=== PATIENT | male | born 1940 | race Caucasian/White ===

== ENCOUNTER 2018-10-23 04:34 | Inpatient (IN) ==
[2018-10-23] MEDS ORDERED: Naloxone 0.4 MG/ML INJ IVP PRN (06:59)
[2018-10-23] MEDS ORDERED: Artificial Tears SOLN 15 ML BOTTLE BOTH EYES PRN (07:01)
--- NOTE | 2018-10-23 07:46 | Pulmonology History & Physical ---
<Ollie Galvan - Last Filed: 10/23/18 18:52> Date of Encounter: 10/23/18 Time of Encounter: 07:45 Assessment and Plan (1) Acute respiratory failure with hypercapnia Current visit: Yes Status: Resolved Patient arrived intubated and sedated, secondary to acute respiratory failure with hypoxia and hypercapnia Patient does not have a history of respiratory disease, but does have a smoking history Patient also apparently had urticaria on arrival to [facility], epinephrine and Benadryl were given Differential for respiratory failure include anaphylaxis, hypersensitivity pneumonitis, COPD exacerbation Etiology is difficult to determine at this time, the patient's clinical status has completely resolved Chest imaging negative for significant signs of pneumonia or other significant pulmonary disease Patient is now extubated off sedation, saturating and ventilating appropriately on room air We will monitor the patient for 24 hours and then likely transfer to general medical floor (2) Hypertension Current visit: Yes Status: Chronic Patient has history of hypertension, his blood pressure was elevated into the 230 systolic on arrival Patient also had bradycardia on arrival in the 40s which has since improved to the 60s and 70s with extubation We have restarted his home valsartan and hydrochlorothiazide and have added IV hydralazine His blood pressure has remained stable on this regimen, once heart rate has normalized we can resume home beta stepan and calcium channel stepan Qualifiers: Hypertension type: essential hypertension Qualified Code(s): I10 - Essential (primary) hypertension (3) CAD (coronary artery disease) Current visit: No Status: Chronic History of coronary artery disease with remote PCI Patient denies any chest pain, EKG without acute signs of ischemia Patient did arrive and bradycardia chest since normalized Echocardiogram pending, otherwise in no acute signs of ACS Qualifiers: Coronary Disease-Associated Artery/Lesion type: [place] artery [place] vs. transplanted heart: [place] heart Associated angina: without angina Qualified Code(s): I25.10 - Atherosclerotic heart disease of [place] coronary artery without angina pectoris (4) Bradycardia Current visit: Yes Status: Resolved Patient arrived with bradycardia, since resolved History of Present Illness Chief complaint: Acute respiratory failure HPI: Mr. Villarreal is a 77 year old male with past medical history of coronary artery disease status post PCI, hypertension. He presented from [facility] ED for acute res piratory fair. Apparently the patient woke up this morning feeling short of breath, the was driving him to [facility] emergency department when he slumped over and became cyanotic. ER staff at [facility] had to pull the patient from his car, he was immediately brought inside and intubated, with immediate return of color and optimization of oxygen saturation and ventilation. He was then quickly transferred to [facility] ICU. On arrival to our ICU the patient was saturating and ventilating appropriately on mechanical ventilation, blood pressure was elevated but stable, heart rate was bradycardic but regular. Past Med Surg Social Fam HX - Past Medical History Medical history: cancer, hypertension, myocardial infarction Psychiatric history: no psych history - Social History Smoking Status: Former smoker Smokeless Tobacco Status: No Alcohol use: none Drug use: none Medications and Allergies Losartan [Cozaar] 100 mg PO DAILY 02/13/15 [History] Multivitamin [Flintstones] 1 each PO DAILY 02/13/15 [History] [place]-3/Dha/Epa/Fish Oil [Fish Oil EC 1,200 mg Softgel] 1 cap PO DAILY 02/13/15 [History] Potassium Chloride 40 meq PO HS 02/13/15 [History] Pravastatin Sodium [Pravachol] 40 mg PO DAILY 02/13/15 [History] Aspirin [Adult Aspirin] 81 mg PO DAILY 10/23/18 [History] Carvedilol [Coreg] 25 mg PO BID 10/23/18 [History] Potassium Chloride 20 meq PO DAILY 10/23/18 [History] dilTIAZem HCl [Diltiazem HCl] 120 mg PO BID 10/23/18 [History] hydroCHLOROthiazide [Hydrochlorothiazide] 25 mg PO DAILY 10/23/18 [History] Allergy/AdvReac Type Severity Reaction Status Date / Time naproxen [From Aleve] Allergy Severe Anaphylaxis Verified 10/23/18 17:16 ROS unobtainable: due to endotracheal tube All Systems: The remainder of the systems were reviewed and are negative Physical Examination Vital Signs: Vital Signs, Last 4 Hours Temp Pulse Resp BP Pulse Ox 10/23/18 07:00 0 F L 44 14 163/118 96 10/23/18 06:46 17 96 General appearance: no acute distress (State on arrival, after extubation patient was in no acute distress) Eyes: nonicteric Effort: normal (Arrived mechanically ventilated, afterwards normal) Auscultation: bilateral: clear Cardiovascular: regular rate and rhythm Gastrointestinal: normoactive bowel sounds, soft, non-tender, non-distended Integumentary: normal Extremities: no cyanosis, no edema, pink and warm, pulses normal Musculoskeletal: no deformities other (Arrived sedated, after extubation was alert and oriented 3) <eBthel Ny - Last Filed: 10/24/18 21:43> Date of Encounter: 10/23/18 History of Present Illness HPI: Mr. Villarreal is a 77 year old male All Systems: The remainder of the systems were reviewed and are negative Physical Examination Vital Signs: Vital Signs, Last 4 Hours Temp Pulse Resp BP Pulse Ox 10/23/18 10:00 61 20 213/74 94 10/23/18 09:24 56 18 236/82 94 10/23/18 08:54 14 97 10/23/18 08:34 19 97 10/23/18 07:35 95.8 F L 10/23/18 07:11 45 14 193/67 97 10/23/18 07:00 0 F L 44 14 163/118 96 10/23/18 06:46 17 96 Results - Laboratory Findings CBC and BMP: 10/24/18 05:58 10/24/18 05:58 - Attending Attestation I examined this patient and my medical decision-making was reviewed with the Resident Physician. I agree with the documented findings, disposition and treatment plan as described except to the extent set forth below. Patient seen and examined. Labs, radiology, chart personally reviewed. Agree with resident's history and physical, assessment, plan with following comments: PERSONNEL TECHNICIAN: Patient follows commands after extubation Pulmonary: Acceptable oxygenation and ventilation and pt is extubated. When I saw this patient, it was not clear to me why the need to keep him on the ventilator and still not exactly sure what happened to him. There is a questionable allergic reaction to medication. Since it is not clear exactly what happened, will monitor closely in ICU and possible transfer out in next 24 hours. Cardiovascular: stable and more hypertensive and will resume his home medication when his heart rate is not bradycardic. Patient has history of CAD and will need to make sure this is not a cardiac event and will check echocardiogram and troponin. GI: Nutrition per dietary and GI prophylaxis per routine. Will resume diet soon. Heme: DVT prophylaxis per routine ID: I don't feel this is infection related. Renal; urine out put and renal function reviewed and will take Kwok's catheter out. Endorcine: blood glucose is monitored Lines: all lines checked and no evidence of infections Skin: skin care to prevent pressure ulcers per nursing routine care Dispo: ICU for today Code: Full. Prognosis. Fair I spent 45 min of Critical Care time with this patient. It involved decision making of high complexity to assess, manipulate, and support vital organ system failure and/or to prevent further life threatening deterioration of the patient's condition. The time involved in the performance of separately reportable procedures was not counted toward critical care time.
[2018-10-23] MEDS ORDERED: Chlorhexidine Rinse 15 ML MOUTHWASH MM SCH (09:00)
[2018-10-23] MEDS: Artificial Tears SOLN 15 ML BOTTLE BOTH EYES SCH ×3 (09:22→16:28)
[2018-10-23] MEDS: hydroCHLOROthiazide 25 MG TABLET PO SCH (09:55)
[2018-10-23] MEDS: Pantoprazole 40 MG VIAL IVP SCH (09:55)
[2018-10-23] MEDS: Aspirin Enteric Coated 81 MG Tablet PO SCH (09:55)
[2018-10-23] MEDS ORDERED: Perflutren Lipid Microsphere 1.3 ML in 0.9 % Sodium Chloride 8.7 ML IVP ONE (14:22)
--- NOTE | 2018-10-23 17:00 | Electrocardiograph Report ---
[address] [place], [place] [address] Test Date: 2018-10-23 Pat Name: Renny Villarreal Department: 109 Room: 11 Gender: M Tunneller: : 1940 Requested By: Ollie Galvan Order Number: [id number] Reading MD: Tracy Larsen Measurements Intervals [place] Rate: 44 P: 16 HI: 181 QRS: 4 QRSD: 95 T: 168 QT: 544 QTc: 497 Interpretive Statements SINUS BRADYCARDIA MODERATE T-WAVE ABNORMALITY, CONSIDER ANTEROLATERAL ISCHEMIA Electronically Signed On 10-23-2018 16:58:49 EDT by Tracy Larsen
[2018-10-24 06:30] LABS: Basophils % 0.1 %; Hematocrit 47.7 % (37.5-50.1); Hemoglobin 16.5 g/dL (12.9-16.9); Immature Granulocytes % 0.6 % (0-4); Lymphocytes # 1.2 K/mcL (0.6-4.6); Lymphocytes % 7.2 %; Mean Corpuscular HGB Conc 34.6 g/dL (31.6-35.5); Mean Corpuscular Hemoglobin 31.4 pg (28.0-33.3); Mean Corpuscular Volume 90.7 fL (83.0-100.0); Mean Platelet Volume 12.1 fL (9.4-12.4); Monocytes # 0.5 K/mcL (0.0-1.3); Monocytes % 2.9 %; Neutrophils # 14.7 K/mcL (1.6-8.9); Platelet Count 154 K/mcL (140-400); Red Blood Count 5.26 M/mcL (4.19-5.50); Red Cell Distribution Width 12.5 % (11.5-14.5); Segmented Neutrophils % 89.2 %; White Blood Count 16.5 K/mcL (4.3-11.1)
[2018-10-24 06:31] LABS: BUN/Creatinine Ratio 29 (6-26); Blood Urea Nitrogen 28 mg/dL (8-23); Calcium 9.2 mg/dL (8.6-10.3); Carbon Dioxide 30 mEq/L (23-29); Chloride 103 mEq/L (98-107); Glucose 166 mg/dL (70-105); Osmolality,Calculated 297 (280-300); Sodium 139 mEq/L (136-145); eGFR For African Americans > 60 (> 60); eGFR For Non-African Americans > 60 (> 60)
--- NOTE | 2018-10-24 07:06 | Pulmonology Progress Note ---
<Ollie Galvan - Last Filed: 10/24/18 15:21> Date of Encounter: 10/24/18 Time of Encounter: 07:06 Assessment and Plan (1) Acute respiratory failure with hypercapnia Current Visit: Yes Status: Inactive 10/23 Patient arrived intubated and sedated, secondary to acute respiratory failure with hypoxia and hypercapnia Patient does not have a history of respiratory disease, but does have a smoking history Patient also apparently had urticaria on arrival to [place], epinephrine and Benadryl were given Differential for respiratory failure include anaphylaxis, hypersensitivity pneumonitis, COPD exacerbation Etiology is difficult to determine at this time, the patient's clinical status has completely resolved Chest imaging negative for significant signs of pneumonia or other significant pulmonary disease Patient is now extubated off sedation, saturating and ventilating appropriately on room air 10/24 Patient saturating and ventilating appropriately on 2 L nasal cannula, in no acute distress At this time suspect original respiratory failure may have been due to anaphylaxis Transfer to general medical floor under supervision of hospitalist team (2) Hypertension Current Visit: Yes Status: Chronic Patient has history of hypertension, his blood pressure was elevated into the 230 systolic on arrival and has remained elevated We have restarted home Coreg, carvedilol, losartan, hydrochlorothiazide, and added when necessary IV hydralazine Patient is not exhibiting any and organ damage signs or symptoms including blurry vision, headache, renal damage This patient's blood pressure will require thorough workup prior to discharge however he is currently stable for transfer to the floor Qualifiers: Hypertension type: essential hypertension Qualified Code(s): I10 - Essential (primary) hypertension (3) CAD (coronary artery disease) Current Visit: No Status: Chronic History of coronary artery disease with remote PCI Patient denies any chest pain, EKG without acute signs of ischemia Patient did arrive with bradycardia which has since normalized Echocardiogram demonstrated mild diastolic dysfunction with preserved ejection fraction, otherwise in no acute signs of ACS Qualifiers: Coronary Disease-Associated Artery/Lesion type: [place] artery [place] vs. transplanted heart: [place] heart Associated angina: without angina Qualified Code(s): I25.10 - Atherosclerotic heart disease of [place] coronary artery without angina pectoris (4) Bradycardia Current Visit: Yes Status: Resolved Patient arrived with bradycardia, since resolved Subjective Principal diagnosis: acute respiratory failure Interval history: No acute events overnight, no acute distress today. Blood pressure has remained elevated. Objective PUL Vital signs: Last Vital Signs Temp 97.3 F L 10/24/18 04:11 Pulse 82 10/24/18 06:00 Resp 22 10/24/18 06:00 BP 192/69 10/24/18 06:00 Pulse Ox 95 10/24/18 06:00 General appearance: no acute distress Eyes: nonicteric ENT: oropharynx moist Neck: supple Effort: normal Auscultation: bilateral: clear Cardiovascular: regular rate and rhythm Gastrointestinal: normoactive bowel sounds, soft, non-tender, non-distended Integumentary: normal Extremities: no cyanosis, pink and warm, pulses normal Musculoskeletal: no deformities normal mental status, pupils equal and round Results - Laboratory Findings CBC and BMP: 10/24/18 05:58 10/24/18 05:58 Abnormal lab findings: Abnormal lab results WBC 16.5 K/mcL (4.3-11.1) H D 10/24/18 05:58 14.7 K/mcL (1.6-8.9) H 10/24/18 05:58 Potassium 3.0 mEq/L (3.5-5.1) L 10/24/18 05:58 Carbon Dioxide 30 mEq/L (23-29) H 10/24/18 05:58 BUN 28 mg/dL (8-23) H 10/24/18 05:58 29 (6-26) H 10/24/18 05:58 Glucose 166 mg/dL (70-105) H 10/24/18 05:58 POC Glucose 213 mg/dL (70-99) H 10/23/18 06:51 - Clinical Findings Intake & Output: Intake & Output 10/23/18 10/23/18 10/24/18 15:59 23:59 07:59 Intake Total 600 / 600 500 / 500 Output Total 1350 / 1850 Balance -1350 / -1250 600 / -1250 500 / 500 Weight 84.9 kg 85.7 kg Consult Discharge Plan - Plan Referrals: Donavan Sims MD [Primary Care Provider] - <Bethel Ny - Last Filed: 10/24/18 23:54> Date of Encounter: 10/24/18 Objective PUL Vital signs: Last Vital Signs Temp 98.0 F 10/24/18 12:49 Pulse 93 10/24/18 08:00 Resp 17 10/24/18 08:00 BP 171/61 10/24/18 08:00 Pulse Ox 94 10/24/18 08:00 Results - Laboratory Findings CBC and BMP: 10/24/18 05:58 10/24/18 05:58 Abnormal lab findings: Abnormal lab results WBC 16.5 K/mcL (4.3-11.1) H D 10/24/18 05:58 14.7 K/mcL (1.6-8.9) H 10/24/18 05:58 Potassium 3.0 mEq/L (3.5-5.1) L 10/24/18 05:58 Carbon Dioxide 30 mEq/L (23-29) H 10/24/18 05:58 BUN 28 mg/dL (8-23) H 10/24/18 05:58 29 (6-26) H 10/24/18 05:58 Glucose 166 mg/dL (70-105) H 10/24/18 05:58 POC Glucose 213 mg/dL (70-99) H 10/23/18 06:51 - Clinical Findings Intake & Output: Intake & Output 10/23/18 10/24/18 10/24/18 23:59 07:59 15:59 Intake Total 600 / 600 500 / 500 Balance 600 / -1250 500 / 500 Weight 85.7 kg - Attending Attestation I examined this patient and my medical decision-making was reviewed with the Resident Physician. I agree with the documented findings, disposition and treatment plan as described except to the extent set forth below. Patient seen and examined. Labs, radiology, chart personally reviewed. Agree with resident's history and physical, assessment, plan with following comments: HOUSE CALLS NURSE PRACTITIONER: Patient follows commands, Pulmonary: Acceptable oxygenation and ventilation Cardiovascular: Hypertensive and I suspect his BP was not controlled as outpatient. Will increase his Cardiazm current dose and hopefully that will control his HTN. He will need to follow up with PCP to adjust his BP medications. GI: Nutrition per dietary and GI prophylaxis per routine Heme: DVT prophylaxis per routine ID: Continue antibiotics and plan to de-escalation Renal; urine out put and renal function reviewed Endorcine: blood glucose is monitored Lines: all lines checked and no evidence of infections Skin: skin care to prevent pressure ulcers per nursing routine care. Stil his face is red and advised him to avod NSAIDs, since that could a cuase. Dispo:floww Code: Full. Prognosis.Fiar Please call for any questions.
[2018-10-24] MEDS: Pantoprazole 40 MG VIAL IVP SCH (08:48)
[2018-10-24] MEDS: hydroCHLOROthiazide 25 MG TABLET PO SCH (08:49)
[2018-10-24] MEDS: Aspirin Enteric Coated 81 MG Tablet PO SCH (08:50)
[2018-10-24] MEDS ORDERED: Diltiazem SR (12hr) 60 MG CAPSULE PO SCH (09:00)
[2018-10-24] MEDS ORDERED: Aspirin Enteric Coated 81 MG Tablet PO SCH (09:00)
[2018-10-24] MEDS ORDERED: Naloxone 0.4 MG/ML INJ IVP PRN (15:23)
[2018-10-24] MEDS ORDERED: dilTIAZem HCl 60 MG TABLET PO SCH (21:00)
[2018-10-24] MEDS: Acetaminophen 325 MG TABLET PO PRN (21:05)
[2018-10-25 03:02] LABS: Basophils % 0.1 %; Eosinophils % 0.3 %; Hematocrit 44.3 % (37.5-50.1); Immature Granulocytes % 0.4 % (0-4); Lymphocytes # 2.1 K/mcL (0.6-4.6); Lymphocytes % 14.3 %; Mean Corpuscular HGB Conc 33.6 g/dL (31.6-35.5); Mean Corpuscular Hemoglobin 31.4 pg (28.0-33.3); Mean Corpuscular Volume 93.5 fL (83.0-100.0); Mean Platelet Volume 12.1 fL (9.4-12.4); Monocytes % 6.4 %; Neutrophils # 11.6 K/mcL (1.6-8.9); Platelet Count 134 K/mcL (140-400); Red Blood Count 4.74 M/mcL (4.19-5.50); Red Cell Distribution Width 12.7 % (11.5-14.5); Segmented Neutrophils % 78.5 %; White Blood Count 14.8 K/mcL (4.3-11.1)
[2018-10-25 03:09] LABS: Hemoglobin 14.9 g/dL (12.9-16.9)
[2018-10-25 03:17] LABS: BUN/Creatinine Ratio 32 (6-26); Blood Urea Nitrogen 35 mg/dL (8-23); Calcium 9.1 mg/dL (8.6-10.3); Carbon Dioxide 31 mEq/L (23-29); Chloride 103 mEq/L (98-107); Glucose 125 mg/dL (70-105); Osmolality,Calculated 305 (280-300); Potassium 3.3 mEq/L (3.5-5.1); Sodium 143 mEq/L (136-145); eGFR For African Americans > 60 (> 60); eGFR For Non-African Americans > 60 (> 60)
[2018-10-25] MEDS: Aspirin Enteric Coated 81 MG Tablet PO SCH (07:29)
[2018-10-25] MEDS: Pantoprazole 40 MG VIAL IVP SCH (07:30)
[2018-10-25] MEDS: hydroCHLOROthiazide 25 MG TABLET PO SCH (07:30)
[2018-10-25] MEDS ORDERED: *HR* Labetalol 20 MG/4 ML SYRINGE IVP ONE (08:32)
[2018-10-25] MEDS ORDERED: Diltiazem CD (24hr) 240 MG CAPSULE PO SCH (09:00)
[2018-10-25] MEDS: Diltiazem SR (12hr) 60 MG CAPSULE PO SCH ×2 (09:13→20:02)
[2018-10-25] MEDS: niCARdipine 20 MG/200 ML MLS IVC SCH ×4 (12:03→23:20)
[2018-10-25] MEDS: Acetaminophen 325 MG TABLET PO PRN (12:42)
--- NOTE | 2018-10-25 14:15 | Internal Med Progress Note ---
Hospitalist Progress Note - Encounter Date of Encounter: 10/25/18 Time of Encounter: 14:12 - Subjective Interval History: Evaluated patient earlier today. Complains of headache. His blood pressure has been elevated significantly overnight. He was transferred out of ICU last evening. He denies any chest pain or palpitations. No significant shortness of breath at this time. - Exam Vitals: Temp Pulse Resp BP Pulse Ox 97.9 F 70 17 184/114 91 10/25/18 12:23 10/25/18 12:23 10/25/18 12:23 10/25/18 12:23 10/25/18 12:23 Exam: General: Patient is alert, mild distress, oriented x 3 Respiratory: Good respiratory effort. Normal breath sounds. No wheezing or c rackles. Cardiovascular: Regular rate and rhythm. s1 and s2 normal No clicks, rubs, gallops, or murmurs. No pedal edema Abdomen: Abdomen is soft, nontender. Bowel sounds are present Musculoskeletal: Spontaneously moving all extremities Skin: warm, dry, intact. Neuro: Alert oriented x 3 normal cranial nerves, no focal deficits - Assessment and Plan (1) Hypertensive urgency Current Visit: Yes Status: Acute (2) Bradycardia Current Visit: Yes Status: Resolved (3) CAD (coronary artery disease) Current Visit: No Status: Chronic DVT Prophylaxis: Will place patient on subcutaneous heparin - Summary of Assessment and Plan Summary of Assessment and Plan: Hypertensive urgency: Blood pressure has been severely elevated. Will place patient on nicardipine drip. Titrate to keep blood pressure less than 180/90. Acute respiratory failure with hypoxia: Now resolved. Elevated blood glucose. Check A1c level. No previous diagnosis of diabetes Hypokalemia: We will replace potassium. Coronary artery disease: Continue aspirin, Coreg. - Time Spent with Patient Total time spent is greater than 50% in coordination of care (as documented) at patient's floor/unit and/or counseling patient: Internal Medicine: Result - Labs CBC & Chem 7: 10/25/18 02:35 10/25/18 02:35 Labs: Short CBC 10/25/18 Range/Units 02:35 WBC 14.8 H (4.3-11.1) K/mcL Hgb 14.9 D (12.9-16.9) g/dL Hct 44.3 (37.5-50.1) % Plt Count 134 L (140-400) K/mcL Neutrophils # 11.6 H (1.6-8.9) K/mcL BMP 10/25/18 02:35 Sodium 143 Potassium 3.3 L Chloride 103 Carbon Dioxide 31 H BUN 35 H Creatinine 1.10 Glucose 125 H Calcium 9.1 Consult Discharge Plan - Plan Referrals: Donavan Sims MD [Primary Care Provider] - (3) CAD (coronary artery disease) Qualifiers: Coronary Disease-Associated Artery/Lesion type: [place] artery [place] vs. transplanted heart: [place] heart Associated angina: without angina Qualified Code(s): I25.10 - Atherosclerotic heart disease of [place] coronary artery without angina pectoris
[2018-10-25] MEDS: *HR* Heparin 5,000 UNIT/ML VIAL SQ SCH (16:49)
[2018-10-26] MEDS: Acetaminophen 325 MG TABLET PO PRN ×2 (03:16→09:33)
[2018-10-26 03:43] LABS: Basophils % 0.3 %; Eosinophils # 0.2 K/mcL (0.0-0.6); Eosinophils % 1.7 %; Hematocrit 45.7 % (37.5-50.1); Hemoglobin 15.6 g/dL (12.9-16.9); Immature Granulocytes % 0.5 % (0-4); Lymphocytes # 2.6 K/mcL (0.6-4.6); Lymphocytes % 23.1 %; Mean Corpuscular HGB Conc 34.1 g/dL (31.6-35.5); Mean Corpuscular Hemoglobin 31.6 pg (28.0-33.3); Mean Corpuscular Volume 92.5 fL (83.0-100.0); Monocytes # 0.9 K/mcL (0.0-1.3); Monocytes % 8.3 %; Neutrophils # 7.5 K/mcL (1.6-8.9); Platelet Count 143 K/mcL (140-400); Red Blood Count 4.94 M/mcL (4.19-5.50); Red Cell Distribution Width 12.4 % (11.5-14.5); Segmented Neutrophils % 66.1 %; White Blood Count 11.4 K/mcL (4.3-11.1)
[2018-10-26 03:59] LABS: BUN/Creatinine Ratio 28 (6-26); Blood Urea Nitrogen 22 mg/dL (8-23); Calcium 9.1 mg/dL (8.6-10.3); Carbon Dioxide 28 mEq/L (23-29); Chloride 100 mEq/L (98-107); Glucose 111 mg/dL (70-105); Osmolality,Calculated 296 (280-300); Potassium 3.1 mEq/L (3.5-5.1); Sodium 141 mEq/L (136-145); eGFR For African Americans > 60 (> 60); eGFR For Non-African Americans > 60 (> 60)
[2018-10-26] MEDS: *HR* Heparin 5,000 UNIT/ML VIAL SQ SCH ×2 (04:48→16:54)
[2018-10-26] MEDS: niCARdipine 20 MG/200 ML MLS IVC SCH ×2 (04:50→09:35)
[2018-10-26] MEDS: Diltiazem SR (12hr) 60 MG CAPSULE PO SCH (07:22)
[2018-10-26] MEDS: Aspirin Enteric Coated 81 MG Tablet PO SCH (07:22)
[2018-10-26] MEDS: hydroCHLOROthiazide 25 MG TABLET PO SCH (07:22)
[2018-10-26] MEDS: Pantoprazole 40 MG VIAL IVP SCH (07:23)
[2018-10-26 07:38] LABS: Estimated Average Glucose 134 mg/dl
[2018-10-26] MEDS: hydrALAZINE 25 MG TABLET PO SCH ×2 (09:32→16:54)
--- NOTE | 2018-10-26 14:24 | Internal Med Progress Note ---
Hospitalist Progress Note - Encounter Date of Encounter: 10/26/18 Time of Encounter: 14:21 - Subjective Interval History: Evaluated patient earlier today. Denies any new complaints. He was started back on the cardiac and drip this morning as his blood pressure was persistently high. Denies any chest pain or palpitations. No blurred vision. - Exam Vitals: Temp Pulse Resp BP Pulse Ox 97.8 F 48 18 144/61 90 10/26/18 12:04 10/26/18 12:04 10/26/18 12:04 10/26/18 12:04 10/26/18 12:04 Exam: General: Patient is alert, no acute distress, oriented x 3 ENT: Mucous membranes moist Respiratory: Normal breath sounds. No wheezing or crackles. Cardiovascular: Regular rate and rhythm. s1 and s2 normal No clicks, rubs, gallops, or murmurs. No pedal edema Abdomen: Abdomen is soft, nontender. Bowel sounds are present Musculoskeletal: Spontaneously moving all extremities Skin: warm, dry, intact. Neuro: Alert oriented x 3 normal cranial nerves, no focal deficits - Assessment and Plan (1) Hypertensive urgency Current Visit: Yes Status: Acute (2) Bradycardia Current Visit: Yes Status: Resolved (3) CAD (coronary artery disease) Current Visit: No Status: Chronic DVT Prophylaxis: On subcutaneous heparin - Summary of Assessment and Plan Summary of Assessment and Plan: Hypertensive urgency: Blood pressure had improved overnight after he was started on nicardipine drip. However, earlier this morning his blood pressure again went up and he was placed back on this medication. We will add hydralazine. Since his been bradycardic also, will stop Cardizem and instead place him on amlodipine. Acute respiratory failure with hypoxia: Now resolved. Elevated blood glucose. A1c was 6.3%. Prediabetic. We will place him on diabetic diet. Hypokalemia: Increase potassium and chloride to 20 mEq twice a day. Coronary artery disease: Continue aspirin, Coreg. - Time Spent with Patient Total time spent is greater than 50% in coordination of care (as documented) at patient's floor/unit and/or counseling patient: Internal Medicine: Result - Labs CBC & Chem 7: 10/26/18 03:17 10/26/18 03:17 Labs: Short CBC 10/26/18 Range/Units 03:17 WBC 11.4 H (4.3-11.1) K/mcL Hgb 15.6 (12.9-16.9) g/dL Hct 45.7 (37.5-50.1) % Plt Count 143 (140-400) K/mcL Neutrophils # 7.5 (1.6-8.9) K/mcL [facility] 10/26/18 03:17 Sodium 141 Potassium 3.1 L Chloride 100 Carbon Dioxide 28 BUN 22 Creatinine 0.79 Glucose 111 H Calcium 9.1 Consult Discharge Plan - Plan Referrals: Donavan Sims MD [Primary Care Provider] - 11/04/18 1:30 pm (3) CAD (coronary artery disease) Qualifiers: Coronary Disease-Associated Artery/Lesion type: [place] artery [place] vs. transplanted heart: [place] heart Associated angina: without angina Qualified Code(s): I25.10 - Atherosclerotic heart disease of [place] coronary artery without angina pectoris
[2018-10-26 14:42] LABS: ABG Base Excess 2 mEq/L (-2 to 3); ABG HCO3 28 mEq/L (21-27); ABG Oxygen Saturation 94 % (95-98); ABG PCO2 51 mmHg (35-45); ABG PH 7.36 pH Units (7.32-7.45); ABG PO2 75 mmHg (85-104); ABG TCO2 30 mEq/L (20-26); Blood Gas Modality ASSIST CONTROL
[2018-10-26 14:43] LABS: Blood Gas PEEP 5 cm H2O; Blood Gas VT 500 cc
[2018-10-26] MEDS: NIFEdipine XL (24 HR) 30 MG TAB.ER.24 PO SCH (15:15)
[2018-10-26] MEDS ORDERED: amLODIPine 5 MG TABLET PO SCH (17:00)
[2018-10-27] MEDS: hydrALAZINE 25 MG TABLET PO SCH ×2 (00:08→07:49)
[2018-10-27 02:38] LABS: BUN/Creatinine Ratio 20 (6-26); Blood Urea Nitrogen 19 mg/dL (8-23); Calcium 9.2 mg/dL (8.6-10.3); Carbon Dioxide 33 mEq/L (23-29); Chloride 101 mEq/L (98-107); Glucose 126 mg/dL (70-105); Osmolality,Calculated 292 (280-300); Potassium 3.4 mEq/L (3.5-5.1); Sodium 139 mEq/L (136-145); eGFR For African Americans > 60 (> 60); eGFR For Non-African Americans > 60 (> 60)
[2018-10-27] MEDS: *HR* Heparin 5,000 UNIT/ML VIAL SQ SCH (06:29)
[2018-10-27] MEDS: Aspirin Enteric Coated 81 MG Tablet PO SCH (07:48)
[2018-10-27] MEDS: hydroCHLOROthiazide 25 MG TABLET PO SCH (07:48)
[2018-10-27] MEDS: NIFEdipine XL (24 HR) 30 MG TAB.ER.24 PO SCH (07:48)
[2018-10-27] MEDS: Pantoprazole 40 MG VIAL IVP SCH (07:48)
[2018-10-27] MEDS ORDERED: hydrALAZINE 25 MG TABLET PO SCH (09:30)
[2018-10-27 11:33] VITALS: BP 182/80
--- NOTE | 2018-10-27 12:08 | Discharge Summary ---
- NOTES TO OUTPATIENT PROVIDER Notes to Outpatient Provider: Patient with history of coronary artery disease, hypertension was hospitalized here with concerns for acute respiratory failure related to adverse reaction to Aleve causing possible anaphylaxis. Patient was intubated and admitted to ICU. His symptoms improved overnight and then he was extubated. Patient however has been having hypertensive urgency with blood pressure persistently greater than 200. As such she will have been placed on nicardipine drip and his antihypertensive regimen has been adjusted. Patient had been bradycardic also and so he has been taken off Cardizem. Since then his heart rate has improved. His blood pressure is now much better controlled and he will be discharged home today. He is to continue to follow up with his primary care provider for further management of his hypertension. Date of Encounter: 10/27/18 Time of Encounter: 12:06 - Discharge Diagnosis (1) Acute respiratory failure with hypoxia and hypercapnia Priority: Primary Status: Acute (2) Hypertensive urgency Priority: Secondary Status: Acute (3) Acute anaphylaxis Priority: Secondary Status: Suspected Qualifiers: Encounter type: initial encounter Qualified Code(s): T78.2XXA - Anaphylactic shock, unspecified, initial encounter (4) Bradycardia Priority: Secondary Status: Resolved (5) CAD (coronary artery disease) Priority: Secondary Status: Chronic Qualifiers: Coronary Disease-Associated Artery/Lesion type: [place] artery [place] vs. transplanted heart: [place] heart Associated angina: without angina Qualified Code(s): I25.10 - Atherosclerotic heart disease of [place] coronary artery without angina pectoris Hospital course: Mr. Villarreal is a 77 year old male Patient with history of coronary artery disease, hypertension was hospitalized here with concerns for acute respiratory failure related to adverse reaction to Aleve causing possible anaphylaxis. Patient was intubated and admitted to ICU. His symptoms improved overnight and then he was extubated. Patient however has been having hypertensive urgency with blood pressure persistently greater than 200. As such she will have been placed on nicardipine drip and his antihypertensive regimen has been adjusted. Patient had been bradycardic also and so he has been taken off Cardizem. Since then his heart rate has improved. His blood pressure is now much better controlled and he will be discharged home today. He will be on hydralazine 50 mg 3 times a day and on Procardia 30 mg daily. He is to continue to follow up with his primary care provider for further management of his hypertension. Discharge discussed with: patient - Time Spent with Patient Total time spent providing and/or coordinating discharge services: Time spent: Greater than 30 minutes (33 min) - Discharge Medications Prescriptions: New hydrALAZINE [HydrALAZINE] 50 mg PO Q8HR #90 tablet NIFEdipine XL (24 HR) [Procardia XL] 30 mg PO DAILY #30 tab.er.24 Continued Potassium Chloride 40 meq PO HS Losartan [Cozaar] 100 mg PO DAILY Pravastatin Sodium [Pravachol] 40 mg PO DAILY [place]-3/Dha/Epa/Fish Oil [Fish Oil EC 1,200 mg Softgel] 1 cap PO DAILY Multivitamin [Flintstones] 1 each PO DAILY Potassium Chloride 20 meq PO DAILY Carvedilol [Coreg] 25 mg PO BID Aspirin [Adult Aspirin] 81 mg PO DAILY hydroCHLOROthiazide [Hydrochlorothiazide] 25 mg PO DAILY Discontinued dilTIAZem HCl [Diltiazem HCl] 120 mg PO BID Home Medications: Losartan [Cozaar] 100 mg PO DAILY 02/13/15 [History] Multivitamin [Flintstones] 1 each PO DAILY 02/13/15 [History] [place]-3/Dha/Epa/Fish Oil [Fish Oil EC 1,200 mg Softgel] 1 cap PO DAILY 02/13/15 [History] Potassium Chloride 40 meq PO HS 02/13/15 [History] Pravastatin Sodium [Pravachol] 40 mg PO DAILY 02/13/15 [History] Aspirin [Adult Aspirin] 81 mg PO DAILY 10/23/18 [History] Carvedilol [Coreg] 25 mg PO BID 10/23/18 [History] Potassium Chloride 20 meq PO DAILY 10/23/18 [History] hydroCHLOROthiazide [Hydrochlorothiazide] 25 mg PO DAILY 10/23/18 [History] NIFEdipine XL (24 HR) [Procardia XL] 30 mg PO DAILY #30 tab.er.24 10/27/18 [Rx] hydrALAZINE [HydrALAZINE] 50 mg PO Q8HR #90 tablet 10/27/18 [Rx] Allergies/Adverse Reactions: Allergy/AdvReac Type Severity Reaction Status Date / Time naproxen [From Aleve] Allergy Severe Anaphylaxis Verified 10/23/18 17:16 Date of admission: 10/23/18 06:44 Primary care physician: Donavan Sims MD Discharging clinician: Shyla Guthrie Anticipated date of discharge: 10/27/18 - Constitutional Vitals: Temp Pulse Resp BP Pulse Ox 98.3 F 72 18 182/80 90 10/27/18 11:31 10/27/18 11:31 10/27/18 11:31 10/27/18 11:31 10/27/18 11:31 General appearance: Present: A&O X 3, pleasant, no acute distress, answers questions appropriately Exam: General: Patient is alert, no acute distress, oriented x 3 ENT: Mucous membranes moist Respiratory: Good respiratory effort. Normal breath sounds. No wheezing or crackles. Cardiovascular: Regular rate and rhythm. s1 and s2 normal No clicks, rubs, gallops, or murmurs. No pedal edema Abdomen: Abdomen is soft, nontender. Bowel sounds are present Musculoskeletal: Spontaneously moving all extremities Skin: warm, dry, intact. Neuro: Alert oriented x 3 normal cranial nerves, no focal deficits - Patient Status Disposition: Home, Self-Care Condition: Good Functional capacity at discharge: independent ambulation Overall status at discharge: patient is progressing back to baseline - Discharge Instructions Instructions: Hypertensive Crisis (DC), Acute Respiratory Distress Syndrome (DC), Chronic Hypertension (DC) Follow Up With: Donavan Sims MD [Primary Care Provider] - 11/04/18 1:30 pm - Diet and Activity Activity: increase activity as tolerated Diet: low fat, low cholesterol, low salt diet
== END 2018-10-27 13:22 | disposition home or self-care (01) | DRG 208 ==
LOC: SUATTDRO 06:44 → ICNU 06:44 → 2ANU 10-24 15:08 → 2NNU 10-25 12:24
PROVIDERS: ADMIT Family Medicine; ATTEND Internal Medicine

== ENCOUNTER 2019-09-03 08:59 | Observation (INO) ==
[2019-09-03] MEDS ORDERED: MOM Conc 10 ML UD.LIQ PO PRN (10:55)
[2019-09-03] MEDS ORDERED: Ondansetron ODT 4 MG TAB.RAPDIS SL PRN (10:55)
[2019-09-03] MEDS ORDERED: Acetaminophen 325 MG TABLET PO PRN (10:55)
[2019-09-03] MEDS ORDERED: Mag Hydrox/Al Hydrox/Simeth 30 ML UDC PO PRN (10:55)
[2019-09-03] MEDS ORDERED: Naloxone 0.4 MG/ML INJ IVP PRN (10:55)
[2019-09-03] MEDS ORDERED: *HR* Heparin 5,000 UNIT/ML VIAL IVP PRN ×2 (11:13)
[2019-09-03] MEDS ORDERED: *HR* Heparin 5,000 UNIT/ML VIAL IVP ONE (11:13)
[2019-09-03 11:30] LABS: Bilirubin,Urine Negative (Negative); Blood,Urine Negative (Negative); Clarity,Urine Clear (Clear); Color,Urine Yellow (Yellow); Glucose,Urine (UA) Normal (Normal); Ketones,Urine Negative (Negative); Leukocyte Esterase,Urine Negative (Negative); Nitrite,Urine Negative (Negative); PH,Urine 7.5 pH Units (5.0-8.0); Protein,Urine Trace mg/dL (Neg-Trace); Specific Gravity,Urine > 1.030 (1.010-1.025); Urobilinogen,Urine Normal (Normal)
[2019-09-03] MEDS ORDERED: DilTIAZem CD (24hr) 120 MG CAP.ER.24H PO SCH (12:45)
[2019-09-03] MEDS: Heparin 25,000 UNIT/250 ML D5W 25,000 UNIT/250 ML IV.SOLN IVC SCH (13:13)
[2019-09-03] MEDS: Azithromycin 500 MG in 0.9 % Sodium Chloride 250 ML IVPB SCH (13:13)
[2019-09-03] MEDS: Aspirin Enteric Coated 81 MG Tablet PO SCH (13:17)
[2019-09-03] MEDS: hydroCHLOROthiazide 25 MG TABLET PO SCH (13:18)
[2019-09-03] MEDS: carvediloL 25 MG TABLET PO SCH ×2 (13:18→17:41)
[2019-09-03] MEDS ORDERED: NON-FORMULARY MEDICATION 1 EACH EACH (Potassium Chloride [K-Tab Er] 20 MEQ) PO SCH (15:00)
[2019-09-04 05:00] LABS: Hematocrit 46.9 % (37.5-50.1); Hemoglobin 15.7 g/dL (12.9-16.9); Mean Corpuscular HGB Conc 33.5 g/dL (31.6-35.5); Mean Corpuscular Hemoglobin 30.8 pg (28.0-33.3); Mean Corpuscular Volume 92.1 fL (83.0-100.0); Mean Platelet Volume 12.3 fL (9.4-12.4); Platelet Count 124 K/mcL (140-400); Red Blood Count 5.09 M/mcL (4.19-5.50); Red Cell Distribution Width 12.4 % (11.5-14.5); White Blood Count 9.1 K/mcL (4.3-11.1)
[2019-09-04 05:15] LABS: BUN/Creatinine Ratio 19 (6-26); Blood Urea Nitrogen 13 mg/dL (8-23); Calcium 9.5 mg/dL (8.6-10.3); Carbon Dioxide 33 mEq/L (23-29); Chloride 104 mEq/L (98-107); Glucose 128 mg/dL (70-105); Magnesium 2.1 mg/dL (1.6-2.6); Osmolality,Calculated 296 (280-300); Potassium 3.1 mEq/L (3.5-5.1); Sodium 142 mEq/L (136-145); eGFR For African Americans > 60 (> 60); eGFR For Non-African Americans > 60 (> 60)
[2019-09-04] MEDS ORDERED: NIFEdipine XL (24 HR) 60 MG TAB.ER.24 PO SCH (07:20)
[2019-09-04] MEDS: carvediloL 25 MG TABLET PO SCH ×2 (07:53→16:33)
[2019-09-04] MEDS: Aspirin Enteric Coated 81 MG Tablet PO SCH (07:55)
[2019-09-04] MEDS: hydroCHLOROthiazide 25 MG TABLET PO SCH (07:56)
[2019-09-04] MEDS: NIFEdipine XL (24 HR) 30 MG TAB.ER.24 PO SCH ×2 (07:56→08:21)
[2019-09-04] MEDS ORDERED: hydrALAZINE 25 MG TABLET PO SCH (08:00)
[2019-09-04] MEDS: Tiotropium 18 MCG inhalation IH SCH (09:52)
[2019-09-04] MEDS: Heparin 25,000 UNIT/250 ML D5W 25,000 UNIT/250 ML IV.SOLN IVC SCH (11:06)
[2019-09-04] MEDS: Azithromycin 500 MG in 0.9 % Sodium Chloride 250 ML IVPB SCH (11:40)
[2019-09-04] MEDS ORDERED: 0.9 % Sodium Chloride 500 ML ONE (12:49)
[2019-09-04] MEDS ORDERED: 0.9 % Sodium Chloride 500 ML IVC ONE (13:00)
[2019-09-04] MEDS: predniSONE 20 MG TABLET PO SCH (14:06)
[2019-09-04 15:12] LABS: Basophils # 0.1 K/mcL (0.0-0.2); Basophils % 0.5 %; Eosinophils # 0.2 K/mcL (0.0-0.6); Eosinophils % 1.9 %; Hematocrit 49.2 % (37.5-50.1); Hemoglobin 16.2 g/dL (12.9-16.9); Immature Granulocytes % 0.2 % (0-4); Lymphocytes # 1.8 K/mcL (0.6-4.6); Lymphocytes % 17.9 %; Mean Corpuscular HGB Conc 32.9 g/dL (31.6-35.5); Mean Corpuscular Hemoglobin 30.4 pg (28.0-33.3); Mean Corpuscular Volume 92.3 fL (83.0-100.0); Mean Platelet Volume 12.9 fL (9.4-12.4); Monocytes # 0.5 K/mcL (0.0-1.3); Monocytes % 5.3 %; Neutrophils # 7.6 K/mcL (1.6-8.9); Platelet Count 156 K/mcL (140-400); Red Blood Count 5.33 M/mcL (4.19-5.50); Red Cell Distribution Width 12.8 % (11.5-14.5); Segmented Neutrophils % 74.2 %; White Blood Count 10.2 K/mcL (4.3-11.1)
[2019-09-04] MEDS: Budesonide/Formoterol 160/4.5 1 PUFF INH IH SCH ×2 (16:15→23:14)
[2019-09-04] MEDS ORDERED: carvediloL 25 MG TABLET PO STA (23:16)
[2019-09-05] MEDS ORDERED: Isovue-370 500 ML BOTTLE IVP ONE (07:18)
[2019-09-05 07:34] VITALS: BP 168/72
[2019-09-05 07:59] LABS: BUN/Creatinine Ratio 24 (6-26); Blood Urea Nitrogen 25 mg/dL (8-23); Calcium 9.3 mg/dL (8.6-10.3); Carbon Dioxide 31 mEq/L (23-29); Chloride 105 mEq/L (98-107); Glucose 118 mg/dL (70-105); Magnesium 2.2 mg/dL (1.6-2.6); Osmolality,Calculated 297 (280-300); Potassium 3.8 mEq/L (3.5-5.1); Sodium 141 mEq/L (136-145); eGFR For African Americans > 60 (> 60); eGFR For Non-African Americans > 60 (> 60)
[2019-09-05] MEDS: NIFEdipine XL (24 HR) 30 MG TAB.ER.24 PO SCH (08:51)
[2019-09-05] MEDS: Aspirin Enteric Coated 81 MG Tablet PO SCH (08:54)
[2019-09-05] MEDS: hydroCHLOROthiazide 25 MG TABLET PO SCH (08:54)
[2019-09-05] MEDS: carvediloL 25 MG TABLET PO SCH (08:54)
[2019-09-05] MEDS: predniSONE 20 MG TABLET PO SCH (08:54)
[2019-09-05] MEDS: Budesonide/Formoterol 160/4.5 1 PUFF INH IH SCH (10:02)
[2019-09-05] MEDS: Tiotropium 18 MCG inhalation IH SCH (10:03)
== END 2019-09-05 12:27 | disposition other institution (70) ==
LOC: 2NENU → 2ANU 09-04 19:54
PROVIDERS: ADMIT Internal Medicine; ATTEND Internal Medicine

== ENCOUNTER 2019-11-01 17:43 | Inpatient (IN) ==
[~2019-11-01 17:43] MED LIST: *HR* Etomidate 20 MG/10 ML AMPUL IVP ONE; *HR* Rocuronium Bromide 50 MG/5 ML VIAL IVP ONE
[2019-11-01] MEDS ORDERED: Isovue-370 500 ML BOTTLE IVP ONE (17:54)
[2019-11-01] MEDS ORDERED: 0.9 % Sodium Chloride 2,000 ML ONE (17:58)
[2019-11-01 18:10] LABS: Hematocrit 53.1 % (37.5-50.1); Hemoglobin 17.4 g/dL (12.9-16.9); Mean Corpuscular HGB Conc 32.8 g/dL (31.6-35.5); Mean Corpuscular Volume 94.7 fL (83.0-100.0); Mean Platelet Volume 12.8 fL (9.4-12.4); Platelet Count 163 K/mcL (140-400); Prothrombin Time 11.4 Seconds (9.4-12.1); Red Blood Count 5.61 M/mcL (4.19-5.50); Red Cell Distribution Width 12.1 % (11.5-14.5); White Blood Count 7.3 K/mcL (4.3-11.1)
[2019-11-01] MEDS ORDERED: *HR* FentaNYL (PF) 1,000 MCG/20 ML VIAL ONE (18:12)
[2019-11-01] MEDS ORDERED: Midazolam HCl 50 MG/100 ML IV.SOLN IVC SCH (18:15)
[2019-11-01 18:21] LABS: ABG Base Excess -2 mEq/L (-2 to 3); ABG HCO3 31 mEq/L (21-27); ABG Oxygen Saturation 100 % (95-98); ABG PCO2 100 mmHg (35-45); ABG PO2 327 mmHg (85-104); ABG TCO2 34 mEq/L (20-26); Blood Gas Modality ASSIST CONTROL; Blood Gas VT 500 cc
[2019-11-01] MEDS ORDERED: Vancomycin 1,500 MG/265 ML IV.SOLN IVPB ONE (18:23)
[2019-11-01] MEDS ORDERED: Piperacillin/Tazobactam 3.375 GM in 0.9 % Sodium Chloride Mini Bag 100 ML IVPB ONE (18:23)
[2019-11-01] MEDS ORDERED: 0.9 % Sodium Chloride 1,000 ML IVC ONE (18:23)
[2019-11-01 18:31] LABS: Alanine Aminotransferase 23 Units/L (7-52); Albumin 4.4 g/dL (3.5-5.7); Albumin/Globulin Ratio 1.6 (1.1-2.2); Alkaline Phosphatase 63 Units/L (34-104); Aspartate Amino Transferase 29 Units/L (13-39); BUN/Creatinine Ratio 13 (6-26); Bilirubin,Direct 0.1 mg/dL (0.0-0.2); Bilirubin,Indirect 0.4 mg/dL (0.0-1.0); Bilirubin,Total 0.5 mg/dL (0.3-1.0); Blood Urea Nitrogen 18 mg/dL (8-23); Calcium 9.4 mg/dL (8.6-10.3); Carbon Dioxide 29 mEq/L (23-29); Chloride 102 mEq/L (98-107); Globulin 2.8 g/dL (2.4-3.5); Glucose 201 mg/dL (70-105); Osmolality,Calculated 302 (280-300); Potassium 4.3 mEq/L (3.5-5.1); Sodium 142 mEq/L (136-145); Total Protein 7.2 g/dL (6.4-8.9); Troponin I 0.04 ng/mL (< 0.04); eGFR For African Americans > 60 (> 60); eGFR For Non-African Americans 51 (> 60)
[2019-11-01] MEDS: 0.9 % Sodium Chloride 1,000 ML IVC ONE ×2 (18:37→18:50)
[2019-11-01] MEDS: FentaNYL (PF) 1,000 MCG/100 ML IV.SOLN IVC SCH (18:37)
[2019-11-01 18:51] LABS: Eosinophils # 0.2 K/mcL (0.0-0.6); Lymphocytes # 5.7 K/mcL (0.6-4.6); Monocytes # 0.4 K/mcL (0.0-1.3)
[2019-11-01 18:52] LABS: Platelet Estimate Normal (Normal); Reactive Lymphocytes Present (Not Present); Smudge Cells Present (Not Present)
[2019-11-01 19:34] LABS: Bilirubin,Urine Negative (Negative); Blood,Urine Negative (Negative); Clarity,Urine Clear (Clear); Color,Urine Yellow (Yellow); Glucose,Urine (UA) Normal (Normal); Ketones,Urine Negative (Negative); Leukocyte Esterase,Urine Negative (Negative); Mucus,Urine Few per lpf (None-Few); Nitrite,Urine Negative (Negative); Protein,Urine 70 mg/dL (Neg-Trace); Specific Gravity,Urine 1.019 (1.010-1.025); Urobilinogen,Urine Normal (Normal); WBC,Urine 0-3 per hpf (0-3)
[2019-11-01] MEDS ORDERED: Ondansetron 4 MG/2 ML VIAL IVP PRN (21:26)
[2019-11-01] MEDS ORDERED: Naloxone 0.4 MG/ML INJ IVP PRN ×2 (21:26→22:44)
[2019-11-01 22:39] LABS: ABG Base Excess 1 mEq/L (-2 to 3); ABG HCO3 29 mEq/L (21-27); ABG Oxygen Saturation 100 % (95-98); ABG PCO2 62 mmHg (35-45); ABG PH 7.28 pH Units (7.32-7.45); ABG PO2 388 mmHg (85-104); ABG TCO2 31 mEq/L (20-26); Blood Gas Modality ASSIST CONTROL; Blood Gas VT 500 cc
[2019-11-01] MEDS: 0.9 % Sodium Chloride 1,000 ML IVC SCH (23:42)
[2019-11-02] MEDS ORDERED: Albuterol 2.5 MG/3 ML NEBULIZER IH PRN (00:36)
[2019-11-02] MEDS ORDERED: 0.9 % Sodium Chloride 1,000 ML IV ONE (00:58)
[2019-11-02] MEDS: FentaNYL (PF) 1,000 MCG/100 ML IV.SOLN IVC SCH (03:35)
[2019-11-02 03:47] LABS: Basophils % 0.3 %; Eosinophils # 0.1 K/mcL (0.0-0.6); Eosinophils % 0.9 %; Hematocrit 50.1 % (37.5-50.1); Hemoglobin 16.4 g/dL (12.9-16.9); Immature Granulocytes % 0.2 % (0-4); Lymphocytes % 8.7 %; Mean Corpuscular HGB Conc 32.7 g/dL (31.6-35.5); Mean Corpuscular Volume 94.7 fL (83.0-100.0); Monocytes # 0.8 K/mcL (0.0-1.3); Monocytes % 7.4 %; Platelet Count 115 K/mcL (140-400); Red Blood Count 5.29 M/mcL (4.19-5.50); Red Cell Distribution Width 12.2 % (11.5-14.5); Segmented Neutrophils % 82.5 %
[2019-11-02 03:54] LABS: Neutrophils # 9.2 K/mcL (1.6-8.9); White Blood Count 11.2 K/mcL (4.3-11.1)
[2019-11-02 03:57] LABS: Prothrombin Time 12.5 Seconds (9.4-12.1)
[2019-11-02 03:58] LABS: INR 1.1
[2019-11-02 04:14] LABS: Alanine Aminotransferase 19 Units/L (7-52); Albumin 3.4 g/dL (3.5-5.7); Albumin/Globulin Ratio 1.5 (1.1-2.2); Alkaline Phosphatase 40 Units/L (34-104); Aspartate Amino Transferase 30 Units/L (13-39); BUN/Creatinine Ratio 18 (6-26); Bilirubin,Total 0.5 mg/dL (0.3-1.0); Blood Urea Nitrogen 21 mg/dL (8-23); Calcium 7.8 mg/dL (8.6-10.3); Carbon Dioxide 24 mEq/L (23-29); Chloride 110 mEq/L (98-107); Globulin 2.2 g/dL (2.4-3.5); Glucose 151 mg/dL (70-105); Magnesium 1.7 mg/dL (1.6-2.6); Osmolality,Calculated 302 (280-300); Phosphorous 2.8 mg/dL (2.7-4.5); Potassium 3.5 mEq/L (3.5-5.1); Sodium 143 mEq/L (136-145); Total Protein 5.6 g/dL (6.4-8.9); Troponin I 0.33 ng/mL (< 0.04); eGFR For African Americans > 60 (> 60); eGFR For Non-African Americans > 60 (> 60)
[2019-11-02 05:19] LABS: ABG Base Excess 0 mEq/L (-2 to 3); ABG HCO3 27 mEq/L (21-27); ABG Oxygen Saturation 90 % (95-98); ABG PCO2 50 mmHg (35-45); ABG PH 7.34 pH Units (7.32-7.45); ABG PO2 64 mmHg (85-104); ABG TCO2 28 mEq/L (20-26); Blood Gas Modality ASSIST CONTROL; Blood Gas VT 500 cc
[2019-11-02] MEDS ORDERED: *HR* Heparin 5,000 UNIT/ML VIAL SQ SCH (06:00)
[2019-11-02] MEDS: Budesonide/Formoterol 160/4.5 1 PUFF INH IH SCH ×2 (07:20→20:28)
[2019-11-02] MEDS: 0.9 % Sodium Chloride 1,000 ML IVC SCH (08:44)
[2019-11-02] MEDS ORDERED: Pantoprazole 40 MG VIAL IVP SCH (09:00)
[2019-11-02] MEDS: Aspirin Enteric Coated 81 MG Tablet PO SCH (09:15)
[2019-11-02] MEDS: Azithromycin 250 MG TABLET PO SCH (09:15)
[2019-11-02] MEDS: carvediloL 25 MG TABLET PO SCH ×2 (09:15→17:32)
[2019-11-02] MEDS: predniSONE 20 MG TABLET PO SCH (09:15)
[2019-11-02] MEDS ORDERED: Perflutren Lipid Microsphere 1.3 ML in 0.9 % Sodium Chloride 8.7 ML IVP ONE (09:40)
[2019-11-02] MEDS ORDERED: *HR* Heparin 5,000 UNIT/ML VIAL IVP PRN ×2 (11:41)
[2019-11-02] MEDS ORDERED: *HR* Heparin 5,000 UNIT/ML VIAL IVP ONE (11:41)
[2019-11-02] MEDS ORDERED: Heparin 25,000 UNIT/250 ML D5W 25,000 UNIT/250 ML IV.SOLN IVC SCH (11:45)
[2019-11-02] MEDS ORDERED: amLODIPine 5 MG TABLET PO SCH (14:00)
[2019-11-02] MEDS ORDERED: amLODIPine 5 MG TABLET PO ONE (19:59)
[2019-11-02] MEDS: Furosemide 20 MG/2 ML VIAL IVP SCH (22:39)
[2019-11-03 04:15] LABS: Basophils % 0.1 %; Eosinophils # 0.1 K/mcL (0.0-0.6); Eosinophils % 0.4 %; Hemoglobin 13.9 g/dL (12.9-16.9); Immature Granulocytes % 0.3 % (0-4); Lymphocytes # 1.4 K/mcL (0.6-4.6); Lymphocytes % 10.1 %; Mean Corpuscular HGB Conc 33.9 g/dL (31.6-35.5); Mean Corpuscular Hemoglobin 30.8 pg (28.0-33.3); Mean Corpuscular Volume 90.9 fL (83.0-100.0); Mean Platelet Volume 12.8 fL (9.4-12.4); Monocytes # 0.8 K/mcL (0.0-1.3); Monocytes % 5.7 %; Neutrophils # 11.8 K/mcL (1.6-8.9); Platelet Count 110 K/mcL (140-400); Red Blood Count 4.51 M/mcL (4.19-5.50); Red Cell Distribution Width 12.5 % (11.5-14.5); Segmented Neutrophils % 83.4 %; White Blood Count 14.2 K/mcL (4.3-11.1)
[2019-11-03 04:31] LABS: BUN/Creatinine Ratio 23 (6-26); Blood Urea Nitrogen 21 mg/dL (8-23); Carbon Dioxide 27 mEq/L (23-29); Chloride 105 mEq/L (98-107); Glucose 135 mg/dL (70-105); Osmolality,Calculated 297 (280-300); Potassium 3.1 mEq/L (3.5-5.1); Sodium 141 mEq/L (136-145); eGFR For African Americans > 60 (> 60); eGFR For Non-African Americans > 60 (> 60)
[2019-11-03] MEDS ORDERED: Potassium Chloride Elixir 20 MEQ/15 ML UDC PO ONE ×2 (04:37→22:29)
[2019-11-03] MEDS: Budesonide/Formoterol 160/4.5 1 PUFF INH IH SCH ×2 (07:25→19:37)
[2019-11-03] MEDS ORDERED: Nitroprusside 50 MG in D5% in Water 250 ML IVC SCH (07:30)
[2019-11-03] MEDS: predniSONE 20 MG TABLET PO SCH (07:40)
[2019-11-03] MEDS: Azithromycin 250 MG TABLET PO SCH (07:40)
[2019-11-03] MEDS: Furosemide 20 MG/2 ML VIAL IVP SCH ×2 (07:40→20:39)
[2019-11-03] MEDS: Aspirin Enteric Coated 81 MG Tablet PO SCH (07:40)
[2019-11-03] MEDS ORDERED: 0.9 % Sodium Chloride 2,000 ML ONE (08:09)
[2019-11-03] MEDS ORDERED: *HR* Heparin 10,000 UNIT/10 ML VIAL ONE (08:10)
[2019-11-03] MEDS ORDERED: Nitroglycerin 1,000 MCG/10 ML VIAL IV ONE (08:10)
[2019-11-03] MEDS ORDERED: Heparin 1,000 UNITS/500 mL 500 ML ONE (08:10)
[2019-11-03] MEDS ORDERED: ISOVUE-370 200 ML INFUS..BTL ONE (08:10)
[2019-11-03] MEDS ORDERED: amLODIPine 5 MG TABLET PO SCH ×2 (09:00→10:45)
[2019-11-03] MEDS ORDERED: *HR* Midazolam HCl 2 MG/2 ML VIAL ONE (09:25)
[2019-11-03] MEDS ORDERED: *HR* FentaNYL (PF) 100 MCG/2 ML VIAL ONE (09:25)
[2019-11-03] MEDS ORDERED: 0.9 % Sodium Chloride 500 ML ONE (10:34)
[2019-11-03 11:28] LABS: Magnesium 1.8 mg/dL (1.6-2.6)
[2019-11-03] MEDS ORDERED: Albuterol 2.5 MG/3 ML NEBULIZER IH PRN (16:11)
[2019-11-03] MEDS ORDERED: Ondansetron 4 MG/2 ML VIAL IVP PRN (16:11)
[2019-11-03] MEDS ORDERED: Naloxone 0.4 MG/ML INJ IVP PRN (16:11)
[2019-11-03] MEDS: carvediloL 25 MG TABLET PO SCH (17:17)
[2019-11-03] MEDS: *HR* Heparin 5,000 UNIT/ML VIAL SQ SCH (17:58)
[2019-11-03] MEDS ORDERED: *HR* Heparin 5,000 UNIT/ML VIAL SQ SCH (18:00)
[2019-11-03 21:49] LABS: BUN/Creatinine Ratio 23 (6-26); Blood Urea Nitrogen 24 mg/dL (8-23); Carbon Dioxide 31 mEq/L (23-29); Chloride 104 mEq/L (98-107); Glucose 193 mg/dL (70-105); Osmolality,Calculated 299 (280-300); Potassium 3.3 mEq/L (3.5-5.1); Sodium 140 mEq/L (136-145); eGFR For African Americans > 60 (> 60); eGFR For Non-African Americans > 60 (> 60)
[2019-11-04 05:00] LABS: Basophils % 0.2 %; Red Cell Distribution Width 12.9 % (11.5-14.5); Segmented Neutrophils % 76.9 %
[2019-11-04 05:02] LABS: Eosinophils # 0.2 K/mcL (0.0-0.6); Eosinophils % 1.4 %; Hemoglobin 13.1 g/dL (12.9-16.9); Immature Granulocytes % 0.5 % (0-4); Immature Platelets 11.4 % (1.1-6.1); Lymphocytes # 1.9 K/mcL (0.6-4.6); Lymphocytes % 14.5 %; Mean Corpuscular HGB Conc 32.8 g/dL (31.6-35.5); Mean Corpuscular Hemoglobin 30.6 pg (28.0-33.3); Mean Corpuscular Volume 93.5 fL (83.0-100.0); Mean Platelet Volume 11.9 fL (9.4-12.4); Monocytes # 0.9 K/mcL (0.0-1.3); Monocytes % 6.5 %; Neutrophils # 10.2 K/mcL (1.6-8.9); Platelet Count 109 K/mcL (140-400); Red Blood Count 4.28 M/mcL (4.19-5.50); White Blood Count 13.3 K/mcL (4.3-11.1)
[2019-11-04] MEDS: *HR* Heparin 5,000 UNIT/ML VIAL SQ SCH ×2 (05:08→16:43)
[2019-11-04 05:21] LABS: BUN/Creatinine Ratio 26 (6-26); Blood Urea Nitrogen 22 mg/dL (8-23); Calcium 8.2 mg/dL (8.6-10.3); Carbon Dioxide 30 mEq/L (23-29); Chloride 106 mEq/L (98-107); Glucose 113 mg/dL (70-105); Osmolality,Calculated 296 (280-300); Potassium 3.7 mEq/L (3.5-5.1); Sodium 141 mEq/L (136-145); eGFR For African Americans > 60 (> 60); eGFR For Non-African Americans > 60 (> 60)
[2019-11-04] MEDS: Budesonide/Formoterol 160/4.5 1 PUFF INH IH SCH ×2 (07:10→19:27)
[2019-11-04] MEDS: Furosemide 20 MG/2 ML VIAL IVP SCH ×2 (08:14→19:44)
[2019-11-04] MEDS: Aspirin Enteric Coated 81 MG Tablet PO SCH (08:15)
[2019-11-04] MEDS: amLODIPine 5 MG TABLET PO SCH ×2 (08:15→08:39)
[2019-11-04] MEDS: predniSONE 20 MG TABLET PO SCH (08:15)
[2019-11-04] MEDS: Azithromycin 250 MG TABLET PO SCH (08:15)
[2019-11-04] MEDS: carvediloL 25 MG TABLET PO SCH ×2 (08:16→16:42)
[2019-11-04] MEDS: hydroCHLOROthiazide 25 MG TABLET PO SCH (08:38)
[2019-11-04] MEDS: DilTIAZem CD (24hr) 120 MG CAP.ER.24H PO SCH (09:27)
[2019-11-04] MEDS: Acetaminophen 325 MG TABLET PO PRN (11:45)
[2019-11-04] MEDS ORDERED: carvediloL 25 MG TABLET PO ONE (19:45)
[2019-11-05 04:34] LABS: Basophils % 0.2 %; Eosinophils # 0.1 K/mcL (0.0-0.6); Eosinophils % 0.8 %; Hematocrit 39.1 % (37.5-50.1); Immature Granulocytes % 0.7 % (0-4); Lymphocytes # 2.1 K/mcL (0.6-4.6); Lymphocytes % 17.2 %; Mean Corpuscular HGB Conc 33.2 g/dL (31.6-35.5); Mean Corpuscular Hemoglobin 30.7 pg (28.0-33.3); Mean Corpuscular Volume 92.2 fL (83.0-100.0); Mean Platelet Volume 12.1 fL (9.4-12.4); Monocytes # 0.9 K/mcL (0.0-1.3); Monocytes % 7.1 %; Platelet Count 119 K/mcL (140-400); Red Blood Count 4.24 M/mcL (4.19-5.50); Red Cell Distribution Width 12.5 % (11.5-14.5); White Blood Count 12.2 K/mcL (4.3-11.1)
[2019-11-05 04:49] LABS: Alanine Aminotransferase 12 Units/L (7-52); Albumin 3.5 g/dL (3.5-5.7); Albumin/Globulin Ratio 1.5 (1.1-2.2); Alkaline Phosphatase 36 Units/L (34-104); Aspartate Amino Transferase 12 Units/L (13-39); BUN/Creatinine Ratio 27 (6-26); Bilirubin,Total 0.5 mg/dL (0.3-1.0); Blood Urea Nitrogen 25 mg/dL (8-23); Calcium 8.6 mg/dL (8.6-10.3); Carbon Dioxide 33 mEq/L (23-29); Chloride 103 mEq/L (98-107); Globulin 2.4 g/dL (2.4-3.5); Glucose 117 mg/dL (70-105); Magnesium 2.1 mg/dL (1.6-2.6); Osmolality,Calculated 297 (280-300); Phosphorous 2.7 mg/dL (2.7-4.5); Potassium 3.1 mEq/L (3.5-5.1); Sodium 141 mEq/L (136-145); Total Protein 5.9 g/dL (6.4-8.9); eGFR For African Americans > 60 (> 60); eGFR For Non-African Americans > 60 (> 60)
[2019-11-05] MEDS ORDERED: Potassium Chloride Elixir 20 MEQ/15 ML UDC PO ONE ×2 (05:49→05:50)
[2019-11-05] MEDS: *HR* Heparin 5,000 UNIT/ML VIAL SQ SCH (06:25)
[2019-11-05] MEDS: Azithromycin 250 MG TABLET PO SCH (07:40)
[2019-11-05] MEDS: Aspirin Enteric Coated 81 MG Tablet PO SCH (07:40)
[2019-11-05] MEDS: DilTIAZem CD (24hr) 120 MG CAP.ER.24H PO SCH (07:41)
[2019-11-05] MEDS: predniSONE 20 MG TABLET PO SCH (07:41)
[2019-11-05] MEDS: carvediloL 25 MG TABLET PO SCH (07:41)
[2019-11-05] MEDS: Furosemide 20 MG/2 ML VIAL IVP SCH (07:42)
[2019-11-05] MEDS: hydroCHLOROthiazide 25 MG TABLET PO SCH (07:42)
[2019-11-05 07:54] VITALS: BP 178/61
[2019-11-05] MEDS: Budesonide/Formoterol 160/4.5 1 PUFF INH IH SCH (09:16)
[2019-11-05] MEDS: Acetaminophen 325 MG TABLET PO PRN (15:25)
== END 2019-11-05 17:00 | disposition home or self-care (01) | DRG 208 ==
LOC: EMEROOARM 17:43 → ICNU 17:43
PROVIDERS: ADMIT Internal Medicine; ATTEND Internal Medicine